=== PATIENT | male | born 1960 | race Caucasian/White ===

== ENCOUNTER 2016-05-18 19:57 | Emergency (ER) | payer OTHER ==
[2016-05-18] MEDS ORDERED: ONDANSETRON HCL 4 MG/2 ML VIAL ONE (20:10)
[2016-05-18] MEDS ORDERED: ONDANSETRON ODT PREPAC 4 MG TAB.RAPDIS PO ONE (22:04)
--- NOTE | 2016-05-18 22:11 | ER PHYSICIAN DOCUMENTATION ---
Physician Documentation [facility] Name:Hank Pedersen Age:55 yrs Sex:Male :1960 Arrival Date:05/18/2016 Time:19:57 Bed4 Private MD:Mike Grubbs ED, Scott Disposition: 05/18/16 20:34 Discharged to Home/Self Care. Impression: Gastroenteritis; Viral. - Condition is Good. - Discharge Instructions: GASTROENTERITIS, Viral [4y-Adult]. - Prescriptions for Zofran 4 mg Oral Tablet - take 1 tablet by ORAL route every 12 hours .; 20 tablet. - Medical Reconciliation form form. - Follow up: Mike Grubbs; When: As needed; Reason: Worsening of condition. - Problem is new. - Symptoms have improved. HPI: 05/18 20:22 This 55 yrs old Male presents to ER via Private Vehicle with complaints of sc Nausea/Vomiting/Diarrhea. 20:22 The patient presents to the emergency department with nausea, with vomiting, with sc diarrhea, without any complaints of abdominal pain. Onset: The symptom(s)/episode began/occurred 2 day(s) ago. Possible causes: unknown. Associated signs and symptoms: The patient has no apparent associated signs or symptoms. Severity of symptoms: At their worst the symptoms were moderate. Historical: - Allergies: No known drug Allergies; - Home Meds: 1. Pilocarpine Opht 2. Lomotil oral 3. Cipro Oral 4. Pepto-Bismol Oral - PMHx: squamous cell skin cancer; throat cancer ; neck surgery; carpal tunnel; nasal surgery; shoulder surgery; - PSHx: Appendectomy; left femur davy; - Tetanus: < 10 years. - Ebola Screening: : Patient negative for fever greater than or equal to 101.5 degrees Fahrenheit, and additional compatible Ebola Virus Disease symptoms. Patient denies exposure to infectious person. Patient denies travel to an Ebola-affected area in the 21 days before illness onset. No symptoms or risks identified at this time. . - Immunization history: Pneumococcal vaccine is not up to date, Patient has never been vaccinated Flu Vaccine < 1 year. - Social history: Smoking status: Patient states was never smoker of tobacco. Patient uses alcohol but reports only rare drinking. Patient/guardian denies using marijuana. ROS: 20:23 Constitutional: Negative for fever, chills, and weight loss. sc Eyes: Negative for injury, pain, redness, and discharge. ENT: Negative for injury, pain, and discharge. Neck: Negative for injury, pain, and swelling. Cardiovascular: Negative for chest pain, palpitations, and edema. Respiratory: Negative for shortness of breath, cough, wheezing, and pleuritic chest pain. Back: Negative for injury and pain. Skin: Negative for injury, rash, and discoloration. 20:23 Neuro: Negative for headache, weakness, numbness, tingling, and seizure. sc 20:23 Abdomen/GI: Positive for nausea, vomiting, diarrhea. Exam: Constitutional: This is a well developed, well nourished patient who is awake, alert, and in no acute distress. Head/Face: Normocephalic, atraumatic. Eyes: Pupils equal round and reactive to light, extra-ocular motions intact. Lids and lashes normal. Conjunctiva and sclera are non-icteric and not injected. Cornea within normal limits. Periorbital areas with no swelling, redness, or edema. ENT: Nares patent. No nasal discharge, no septal abnormalities noted. Tympanic membranes are normal and external auditory canals are clear. Oropharynx with no redness, swelling, or masses, exudates, or evidence of obstruction, uvula midline. Mucous membranes moist. Neck: Trachea midline, no thyromegaly or masses palpated, and no cervical lymphadenopathy. Supple, full range of motion without nuchal rigidity, or vertebral point tenderness. No meningismus. Chest/axilla: Normal chest wall appearance and motion. Nontender with no deformity. No lesions are appreciated. Cardiovascular: Regular rate and rhythm with a normal S1 and S2. No gallops, murmurs, or rubs. Normal PMI, no JVD. No pulse deficits. Respiratory: Lungs have equal breath sounds bilaterally, clear to auscultation and percussion. No rales, rhonchi or wheezes noted. No increased work of breathing, no retractions or nasal flaring. 20:27 Back: No spinal tenderness. No costovertebral tenderness. Full range of motion. sc 20:27 Abdomen/GI: Inspection: abdomen appears normal, Bowel sounds: hyperactive, Palpation: mild abdominal tenderness, in all quadrants. 20:27 Skin: Turgor: is poor. Vital Signs: 20:00 BP 147 / 105; Pulse 83; Resp 18; Temp 97.6(O); Pulse Ox 94% on R/A; Weight 79.38 kg; rh Height 5 ft. 10 in. (177.80 cm); Pain 1/10; 20:22 BP 125 / 86; Pulse 80; Pulse Ox 92% on R/A; sj 21:22 BP 148 / 95; Pulse 77; Pulse Ox 92% on R/A; sj 20:00 Body Mass Index 25.11 (79.38 kg, 177.80 cm) rh MDM: 20:06 Patient medically screened. ne 20:28 Differential diagnosis: viral gastroenteritis, gastroenteritis. Data reviewed: vital sc signs, nurses notes, and as a result, I will continue to observe the patient, administer IV fluids. Counseling: I had a detailed discussion with the patient and/or guardian regarding: the historical points, exam findings, and any diagnostic results supporting the discharge/admit diagnosis, the need for outpatient follow up, to return to the emergency department if symptoms worsen or persist or if there are any questions or concerns that arise at home. Response to treatment: the patient's symptoms have markedly improved after treatment. 05/18 19:59 Order name: Iv Saline Lock; Complete Time: 20:22 05/18 20:33 Order name: Urine Dip; Complete Time: 21:25 ne 05/18 20:33 Order name: Hemocult Stool; Complete Time: 21:25 ne Dispensed Medications: 20:05 Drug: NS 0.9% 1000 ml; Route: IV; Rate: bolus; Site: left antecubital; 20:45 Follow up: IV Status: Completed infusion; IV Intake: 1000ml 20:05 Drug: Zofran 4 mg; Route: IVP; Infused Over: 2 mins; Site: left antecubital; 21:24 Follow up: Response: Nausea is decreased 20:45 Drug: NS 0.9% 2000 ml; Route: IV; Rate: bolus; Site: left antecubital; sj 22:09 Follow up: IV Status: Completed infusion; IV Intake: 2000ml 21:57 Drug: Zofran 1 tablet; Route: PO; sj 21:57 Follow up: Response: Pharmacy closed - take home med pack Point of Care Testing: Guaiac: 21:22 Stool Guaiac: Negative; Stool Hemoccult Control: Pass; sj Urine Dip: 21:22 pH: 5.5; ; Specific [place]: 1.030; Ketones: Negative; Glucose: Negative; Protein: sj Positive (+); Leukocytes: Negative; Nitrite: Negative ; Blood: Negative; Bilirubin: Negative ; Urobilinogen: Normal Signatures: Dylan Monreal MD MD sc Hofsess, Rachel Josefina Umanzor
--- NOTE | 2016-05-18 22:11 | ER NURSING DOCUMENTATION ---
Nurse's Notes [facility] Name:Hank Pedersen Age:55 yrs Sex:Male :1960 Arrival Date:05/18/2016 Time:19:57 Bed4 Private MD:Mike Grubbs Diagnosis:Gastroenteritis; Viral Presentation: 05/18 19:59 Acuity: NICOLE 3 rh 20:11 Presenting complaint: Patient states: nausea, vomiting and diarrhea since Wednesday. sj Called Dr. Grubbs today for script for Cipro and Lomotil, took one dose. Transition of care: Home. Notified ED Physician of patient's arrival and CC Dr. Monreal notified. 20:11 Method Of Arrival: Private Vehicle sj Triage Assessment: 20:15 General: Appears ill, uncomfortable, Behavior is cooperative, restless. Pain: Complains sj of pain in generalized abdominal and suprapubic area. Respiratory: Respiratory effort is even, unlabored. 20:25 GI: Reports lower abdominal pain, diarrhea, intolerance of fluids, intolerance of food, sj nausea, vomiting. Historical: - Allergies: No known drug Allergies; - Home Meds: 1. Pilocarpine Opht 2. Lomotil oral 3. Cipro Oral 4. Pepto-Bismol Oral - PMHx: squamous cell skin cancer; throat cancer ; neck surgery; carpal tunnel; nasal surgery; shoulder surgery; - PSHx: Appendectomy; left femur davy; - Tetanus: < 10 years. - Ebola Screening: : Patient negative for fever greater than or equal to 101.5 degrees Fahrenheit, and additional compatible Ebola Virus Disease symptoms. Patient denies exposure to infectious person. Patient denies travel to an Ebola-affected area in the 21 days before illness onset. No symptoms or risks identified at this time. . - Immunization history: Pneumococcal vaccine is not up to date, Patient has never been vaccinated Flu Vaccine < 1 year. - Social history: Smoking status: Patient states was never smoker of tobacco. Patient uses alcohol but reports only rare drinking. Patient/guardian denies using marijuana. Assessment: 20:25 GI: Abdomen is flat, non- distended Stools are reported to be "black tarry". Bowel sj sounds hypoactive in x 4 quads Abdomen is tender to palpation in suprapubic area, left upper quadrant and right lower quadrant. Vital Signs: 20:00 BP 147 / 105; Pulse 83; Resp 18; Temp 97.6(O); Pulse Ox 94% on R/A; Weight 79.38 kg; rh Height 5 ft. 10 in. (177.80 cm); Pain 1/10; 20:22 BP 125 / 86; Pulse 80; Pulse Ox 92% on R/A; sj 21:22 BP 148 / 95; Pulse 77; Pulse Ox 92% on R/A; sj 20:00 Body Mass Index 25.11 (79.38 kg, 177.80 cm) rh ED Course: 19:58 Patient arrived in ED. em2 19:58 Mike Grubbs is Private Physician. em2 19:59 Triage completed. rh 20:06 Dylan Monreal MD is Attending Physician. sc 20:11 Josefina Umanzor is Primary Nurse. sj 20:16 Valuables Given to family. Patient has correct armband on for positive identification. sj Placed in gown. Bed in low position. Call light in reach. Side rails up X 1. Pulse Ox - RN Monitoring Only NIBP On - RN Monitoring Only. Warm blanket given. 20:17 Inserted peripheral IV: 20 gauge in left antecubital area and blood collected. sj 20:33 Mike Grubbs is Referral Physician. sc Administered Medications: 20:05 Drug: NS 0.9% 1000 ml; Route: IV; Rate: bolus; Site: left antecubital; sj 20:45 Follow up: IV Status: Completed infusion; IV Intake: 1000ml 20:05 Drug: Zofran 4 mg; Route: IVP; Infused Over: 2 mins; Site: left antecubital; sj 21:24 Follow up: Response: Nausea is decreased 20:45 Drug: NS 0.9% 2000 ml; Route: IV; Rate: bolus; Site: left antecubital; sj 22:09 Follow up: IV Status: Completed infusion; IV Intake: 2000ml 21:57 Drug: Zofran 1 tablet; Route: PO; sj 21:57 Follow up: Response: Pharmacy closed - take home med pack Point of Care Testing: Guaiac: 21:22 Stool Guaiac: Negative; Stool Hemoccult Control: Pass; sj Urine Dip: 21:22 pH: 5.5; ; Specific [place]: 1.030; Ketones: Negative; Glucose: Negative; Protein: sj Positive (+); Leukocytes: Negative; Nitrite: Negative ; Blood: Negative; Bilirubin: Negative ; Urobilinogen: Normal Intake: 20:45 IV: 1000ml; Total: 1000ml. sj 22: IV: 2000ml; Total: 3000ml. Outcome: 20:34 Discharge ordered by . nm 22:09 Discharged to home ambulatory, with significant other. 22:09 Condition: improved 22:09 Discharge Assessment: Patient awake, alert and oriented x 3. No cognitive and/or functional deficits noted. Patient verbalized understanding of disposition instructions. 22:09 Discharge instructions given to patient, significant other, Instructed on discharge instructions, follow up and referral plans. medication usage, Demonstrated understanding of instructions, medications, Prescriptions given X 1. 22:09 IV D/Drew 22:10 Patient left the ED. 05/19 13:57 Discharge F/U Call: Unable to reach: no answer wy 05/20 11:34 Discharge F/U Call: Spoke with: patient. Overall Care on a scale of 1-[address] being the best care, you rate our care as: Other comments: pt is feeling better today. Pt thanked us for his care. Signatures: Yue Miles RN Risa Prado RN RN ma Chew, Scott, MD MD sc Meinking-reg, Ellen-reg em2 Hofsess, Rachel Josefina Umanzor
== END 2016-05-18 22:10 | disposition home or self-care (01) ==
LOC: ER 19:57
DX: A08.4 Viral intestinal infection, unspecified (principal); E86.0 Dehydration
CPT/HCPCS: 96361; 96374; 99284; J2405